=== PATIENT | female | born 1955 | race African-American/Black ===

== ENCOUNTER 2018-03-08 08:44 | Emergency (ER) | payer OTHER ==
[2018-03-08 08:53] VITALS: TEMP 98.6; BMI 43.5
--- NOTE | 2018-03-08 09:23 | PDOC ---
History of Present Illness - General Chief Complaint: Syncope/Near Syncope Stated Complaint: I PASSED OUT Time Seen by Provider: 03/08/18 08:49 - History of Present Illness Initial Comments: 03/08/18 09:16 63-year-old female with a history of hypertension, syncopal episodes, MERCEDES presents to the emergency Department with a syncopal episode 1 hour prior to arrival. 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 While she was sitting on the sidewalk this morning she began to feel a sensation of nausea and also felt very hot. Pt states she often feels this way prior to passing out and so she took some smelling salts from her purse which made her feel better for a few seconds. Shortly thereafter, she states the nausea returned and laid flat on the ground and lost consciousness. A bystander was able to tend to her immediately and called 911. Patient is unaware how long she lost consciousness for. She denies any head strike or injuries. Denies any urinary or stool incontinence. Does not believe she was out for very long. She reports after gaining consciousness again, she was asymptomatic. She currently reports a burning sensation in her epigastric area, but states she has this sensation daily due to her gastroesophageal reflux. She denies any prodromal chest pain, palpitations, shortness of breath, dizziness. She reports that she has had nasal congestion and URI symptoms for the last 3 or 4 days. The patient states she had a similar episode in 2012, and was seen at [facility] emergency department and released. She states she's had similar episodes as well when she was younger when she was dehydrated or drank water that was "too cold." Pt sees a automatic trimming sewer for her BP, but never for her syncopal episodes. Has no hx recent travel. No family hx of sudden cardiac deathl. Denies smoking, etoh, drug use. Past History - Past Medical History Allergies/Adverse Reactions: Allergies Allergy/AdvReac Type Severity Reaction Status Date / Time naproxen [From Naprosyn] Allergy Verified 03/08/18 08:48 Home Medications: Ambulatory Orders Metoprolol Succinate [Toprol Xl -] 50 mg PO DAILY 03/08/18 COPD: No HTN: Yes - Surgical History Cholecystectomy: Yes - Suicide/Smoking/Psychosocial Hx Smoking History: Never smoked Hx Alcohol Use: No Drug/Substance Use Hx: No Substance Use Type: None Review of Systems - Review of Systems Comments:: 03/08/18 09:23 GENERAL/CONSTITUTIONAL: No fever or chills. No weakness. +LOC HEAD, EYES, EARS, NOSE AND THROAT: No change in vision. No ear pain or discharge. No sore throat. GASTROINTESTINAL: +nausea, no vomiting, diarrhea or constipation. +epigastric burning GENITOURINARY: No dysuria, frequency, or change in urination. CARDIOVASCULAR: No chest pain or shortness of breath. RESPIRATORY: No cough, wheezing, or hemoptysis. MUSCULOSKELETAL: No joint or muscle swelling or pain. No neck or back pain. SKIN: No rash NEUROLOGIC: No headache, vertigo, loss of consciousness, or change in strength/ sensation. ENDOCRINE: No increased thirst. No abnormal weight change. HEMATOLOGIC/LYMPHATIC: No anemia, easy bleeding, or history of blood clots. ALLERGIC/IMMUNOLOGIC: No hives or skin allergy. *Physical Exam - Vital Signs Last Vital Signs Temp Pulse Resp BP Pulse Ox 98.6 F 80 18 129/68 98 03/08/18 08:45 03/08/18 08:45 03/08/18 08:45 03/08/18 08:45 03/08/18 08:45 - Physical Exam Comments: 03/08/18 09:24 GENERAL: Awake, alert, and fully oriented, in no acute distress HEAD: No signs of trauma EYES: PERRLA, EOMI, sclera anicteric, conjunctiva clear ENT: Auricles normal inspection, hearing grossly normal, nares patent, oropharynx clear without exudates. Moist mucosa NECK: Normal ROM, supple, no lymphadenopathy, JVD, or masses LUNGS: Breath sounds equal, clear to auscultation bilaterally. No wheezes, and no crackles HEART: Regular rate and rhythm, normal S1 and S2, no murmurs, rubs or gallops ABDOMEN: Soft, nontender, normoactive bowel sounds. No guarding, no rebound. No masses EXTREMITIES: Normal range of motion, no edema. No clubbing or cyanosis. No cords, erythema, or tenderness NEUROLOGICAL: Normal speech, cranial nerves intact, negative pronator drift, 5/ 5 strength in all 4 extremities, normal sensation to light touch in all 4 extremities, normal cerebellar exam, normal gait, normal reflexes and tone SKIN: Warm, Dry, normal turgor, no rashes or lesions noted. Heart Score/ECG Review #1 03/08/18 09:27 Twelve-lead EKG was performed and reviewed by me. Normal sinus rhythm, rate 67. Normal axis and intervals. No ST elevations or T-wave inversions. ED Treatment Course - LABORATORY CBC & Chemistry Diagram: 03/08/18 09:29 03/08/18 09:33 Medical Decision Making - Medical Decision Making 03/08/18 09:24 63-year-old female with a history of hypertension and multiple episodes of syncope presents to the emergency Department with a syncopal episode in the setting of sleep deprivation and upper respiratory infection. Vitals within normal limits. Exam within normal limits. Likely vasovagal syncope given history of similar episodes as well as nausea and feeling warm prior to passing out and quick return to baseline. EKG with no evidence of brugada, wpw, hocm, arrhythmia. Ulikely PE as no risk factors and no sxs of cp, sob. No hypoxia. Pt currently asymptomatic other than epigastric burning which she states is consistent with her gerd. Given the patient's age and medical history, will check a set of labs and reassess. 03/08/18 10:15 Labs wnl. Pt asymptomatic. Ambulating in ED requesting DC home. ADvised pt to f/ u with automatic trimming sewer within 2-3 days for her syncopal episodes. I discussed the physical exam findings, ancillary test results and final diagnoses with the patient. I answered all of the patient's questions. The patient was satisfied with the care received and felt comfortable with the discharge plan and treatment plan. The patient will call their primary care physician within 24 hours to arrange follow-up and will return to the Emergency Department with any new, persistent or worsening symptoms. *DC/Admit/Observation/Transfer Diagnosis at time of Disposition: Syncope - Discharge Dispostion Disposition: HOME Condition at time of disposition: Stable Decision to Admit order: No - Referrals - Patient Instructions Printed Discharge Instructions: DI for Syncope in Adults (Fainting) Additional Instructions: As discussed follow up with your automatic trimming sewer within 2-3 days for your syncope. See you primary doctor within 1 week. Return to the emergency department if you have any new, worsening, or concerning symptoms. - Post Discharge Activity Forms/Work/School Notes: Back to Work - Attestations Physician Attestion: 03/08/18 10:18 I, Dr. Edwardo Collins MD, attest that this document has been prepared under my direction and personally reviewed by me in its entirety. I further attest, that it accurately reflects all work, treatment, procedures and medical decision -making performed by me.
[2018-03-08] MEDS ORDERED: SODIUM CHLORIDE 0.9% 1000 ML INFUS.BAG IV ONE (09:28)
[2018-03-08] MEDS ORDERED: ONDANSETRON 4 MG/2 ML VIAL IVPUSH ONE (09:28)
[2018-03-08] MEDS ORDERED: ONDANSETRON 4 MG/2 ML VIAL ONE (09:34)
[2018-03-08 09:53] LABS: HEMATOCRIT 34.7 % (32.4-45.2); MCH 29.4 pg (25.7-33.7); MEAN CELL VOLUME 85.2 fl (80-96); RBC 4.07 M/mm3 (3.60-5.2); WHITE BLOOD COUNT 7.5 K/mm3 (4.0-10.8)
[2018-03-08 09:54] LABS: BASO % 0.3 % (0-2.0); EOS % 0.7 % (0-4.5); LYMPH % 10.6 % (8-40); MCHC 34.5 g/dl (32.0-36.0); MEAN PLT VOLUME 9.3 fl (7.5-11.1); MONO % 6.3 % (3.8-10.2); NEUT % 82.1 % (42.8-82.8); PLATELET COUNT 242 K/MM3 (134-434); RDW 13.6 % (11.6-15.6)
[2018-03-08 09:56] LABS: ALBUMIN 3.7 g/dl (3.5-5.0); ALK PHOS 76 U/L (32-92); ANION GAP 2 (8-16); BILIRUBIN,TOTAL 0.3 mg/dl (0.2-1.0); BLOOD UREA NITROGEN 13 mg/dl (7-18); CALCIUM 9.2 mg/dl (8.4-10.2); CHLORIDE 104 mmol/L (98-107); CO2 29 mmol/L (22-28); CREATININE 0.9 mg/dl (0.6-1.3); GLUCOSE,RANDOM 154 mg/dl (74-106); MAGNESIUM 1.8 mg/dL (1.8-2.4); POTASSIUM 4.2 mmol/L (3.5-5.1); SGOT/AST 21 U/L (10-42); SGPT/ALT 26 U/L (10-40); SODIUM 135 mmol/L (136-145); TOT PROT 7.4 g/dl (6.4-8.3)
[2018-03-08] MEDS ORDERED: FAMOTIDINE 20 MG/50 ML IVPB 20 MG/50 ML MG IVPB ONE ×3 (10:15→19:00)
[2018-03-08 10:21] VITALS: BP 119/66; PULSE 76
--- NOTE | 2018-03-09 10:32 | EKG ---
Test Reason : Blood Pressure : / mmHG Vent. Rate : 067 BPM Atrial Rate : 067 BPM P-R Int : 164 ms QRS Dur : 080 ms QT Int : 404 ms P-R-T Axes : 071 041 055 degrees QTc Int : 426 ms NORMAL SINUS RHYTHM NORMAL ECG NO PREVIOUS ECGS AVAILABLE Confirmed by MARCK VALLECILLO MD ([id number]) on 03/09/2018 10:32:32 AM Referred By: MARTY BENTON Confirmed By:MARCK VALLECILLO MD
== END 2018-03-08 10:29 | disposition home or self-care (01) ==
LOC: FER 08:44
PROC: 3E0337Z Introduction of Electrolytic and Water Balance Substance into Peripheral Vein, Percutaneous Approach (ICD-10-PCS; principal; 2018-03-08)
PROC: 3E033GC Introduction of Other Therapeutic Substance into Peripheral Vein, Percutaneous Approach (ICD-10-PCS; 2018-03-08)
DX: R55 Syncope and collapse (principal); I10 Essential (primary) hypertension; K21.9 Gastro-esophageal reflux disease without esophagitis
CPT/HCPCS: 36415; 80053; 83735; 84484; 85025; 93005; 99283-25; J7030